=== PATIENT | female | born 1970 | race Caucasian/White ===

== ENCOUNTER 2017-03-14 08:30 | Inpatient (IN) | payer MEDICARE, MEDICAID ==
[~2017-03-14] VITALS: Ht 152.4 cm; Wt 94.3 kg
--- NOTE | ~2017-03-14 | CO ---
Unit #: [id number] #: [id number] Patient: KURT HAMILTON [id number] [place], [place] [address] [id number] I MR#: [id number] NAME: KURT HAMILTON. ROOM: 229 Age: 47 Sex: F Admission Date: 03/14/2017 : 1970 Attending Physician: Dianne Taylor M.D. Primary Care Physician: Primary Care Physician No Consultation Date: 03/18/2017 CONSULTATION REPORT REASON FOR CONSULTATION Followup. DISCUSSION Ms. Kurt Hamilton is a 47-year-old female, seen in room 229, bed 1 on 03/18/2017 at [facility]. The patient diagnosed with bipolar mood disorder; anxiety disorder, not otherwise specified. Currently compliant with medication. Reports medication is helping her. Denied any suicidal or homicidal ideation. Denied any psychotic symptom. The patient's vital signs; temperature 98.2, heart rate 100, respiratory rate 16, blood pressure 148/77, and oxygen saturation 100%. REVIEW OF SYSTEMS Complete review of system is unremarkable. MENTAL STATUS EXAMINATION General appearance; the patient dressed casually, lying comfortably in bed. Attention span and concentration, fair. Speech, regular rate and coherent. Oriented in time, place, and person. Mood and affect; sad, dysphoric, labile. Thought process, coherent. Thought content, the patient denied any thoughts of harming self or others. Recent and remote memory, fair. Language, intact. Fund of knowledge, fair. Insight and judgment, fair to slightly impaired. DIAGNOSES Psychiatric: Bipolar mood disorder, recurrent, severe, depressed, F31.9; anxiety disorder, not otherwise specified, F40.01. ASSESSMENT/PLAN 1. Supportive psychotherapy and psychoeducation provided to the patient. 2. Educated about benefits and side effects of medication and course and prognosis of illness. 3. Advised to continue with current medication. If needed, consider further adjustment of medication. Please feel free to call if any questions, telephone #[phone]. Dictated by... Hudson Hampton M.D. YANET/sharona TD: 03/19/2017 23:12 JOB #: [id number] Unit #: [id number] #: [id number] Patient: KURT HAMILTON CONSULTATION REPORT Page 1 of 1 X Hudson Hampton MD CONSULTATION REPORT
--- NOTE | ~2017-03-14 | CO ---
Unit #: [id number] #: [id number] Patient: KURT DERAS [id number] [address] [address] [id number] I MR#: [id number] NAME: KURT DERAS ROOM: 229 Age: 47 Sex: F Admission Date: 03/14/2017 : 1970 Attending Physician: Dianne Taylor M.D. Primary Care Physician: Primary Care Physician No Consultation Date: 03/17/2017 CONSULTATION REPORT REASON FOR CONSULTATION Followup. DISCUSSION Ms. Kurt Deras is a 47-year-old white female, seen in room 229, bed 1 on 03/17/2017. The patient was transferred from 5th floor. The patient reports that she is feeling better, but still somewhat anxious, nervous, mood labile. Reported physically not feeling well. Diagnosed with bipolar mood disorder. The patient reports medication is helping her. The patient's magnesium was 1.8, glucose 198. The patient reports still having lot of anxiety. REVIEW OF SYSTEMS Complete review of system unremarkable. MENTAL STATUS EXAMINATION The patient's vital signs; temperature 98.2, heart rate 86, respiratory rate 18, blood pressure 147/79, and oxygen saturation 100%. General appearance; the patient dressed in hospital attire, seemed somewhat anxious and nervous. Attention span and concentration, fair. Speech, regular rate and coherent. Oriented in time, place, and person. Mood and affect, sad and dysphoric. Thought process, coherent. Thought content, the patient denied any thoughts of harming self or others. Recent and remote memory, poor. Language, intact. Fund of knowledge, fair. Insight and judgment, fair to slightly impaired. DIAGNOSES Psychiatric: Bipolar mood disorder, recurrent, severe, depressed, F31.9; anxiety disorder, not otherwise specified, F40.01. ASSESSMENT/PLAN 1. Supportive psychotherapy and psychoeducation provided to the patient. 2. Educated about benefits and side effects of medication and course and prognosis of illness. 3. Advised to continue with current medication and we will make further adjustment of medication if needed. Dictated by... Valerie Pandey/sharona TD: 03/18/2017 08:24 Unit #: [id number] #: [id number] Patient: SHELLEY DERASY Cristi JOB #: [id number] CONSULTATION REPORT Page 1 of 1 X Hudson Hampton MD CONSULTATION REPORT
--- NOTE | ~2017-03-14 | A ---
[facility] Nutrition Therapy DATE: 03/15/17 Patient: KURT HAMILTON Physician: TEMO Address: [address] [place] [address] Room/Bed: [address], Zip: [place] [id number] Admit Date: 03/14/17 Date of : [birth year] Height: 5 0 Weight: 207 94 NUTRITIONAL ASSESSMENT: REASON: Diagnosis (DKA) + pending consult Admitting dx: 47 y/o female admitted with 5-day N/V/D + abdominal pain, found to be in DKA PMH: T1DM (dx ~1.5 yrs ago), anxiety, depression, helder Anthropometrics: Ht: 60", Wt: 86-94 kg since admission, BMI: 39 (stage II obese; based on admission weight) Labs: glucose 119, POC 122-192, A1C 13.9, Na 133, K+ 3.2, Phos 1.5, ALT 45 Meds: PPI, insulin drip, zofran prn I/O & Bowel function: Last BM 03/15 Skin Integrity: No significant issues, no edema Assessment: Chart reviewed, events noted. Patient admitted with BG > 1500 mg/dL, pt reports not taking insulin for the past month, found to be in DKA and was started on an insulin drip and made NPO. BG now better controlled, see A1C lab as stated above. She is inappropriate for interivew or diet education at this time. Scored 0 points on the malnutrition risk screen. Nursing is about to order the patient a consistent carb diet and order nutrition consult while RD on ICU floor. RD attempted to educate the patient but she stated she has not eaten yet, has blurry vision and isn't understanding much at this time and did not wish to verbally review the handouts left at bedside, which included: 1800 calorie/day 5-day sample meal plan, DM label reading tips, weight loss tips. RD left dietitian office number at top of handout and encouraged the patient to review the materials once able and to call with any questions. Will f/u to verbally review with her. See RD recs below, will follow hospital course. Dx: 1) Inadequate energy intake r/t diet not yet advanced AEB NPO status. 2) Altered nutrition related lab values r/t insulin non-compliance AEB BG > 1500 mg/dL on admission, A1C 13.9, DKA. 3) Stage II obese r/t diet, lifestyle, PMH AEB BMI 39. Intervention: Oral diet as tolerated, diet education once appropriate, insulin regimen Monitoring, Evaluation and Goals: 1. Tolerance of oral diet advancement with no c/o N/V/D. [facility] Nutrition Therapy DATE: 03/15/17 Patient: KURT HAMILTON Physician: TEMO Address: [address] [place] [address] Room/Bed: [address], Zip: [place] [address] Admit Date: 03/14/17 Date of : [birth year] Height: 5 0 Weight: 207 94 2. Improvement in labs (lytes, glucose, A1C). 3. Promote a gradual weight loss towards a healthy BMI range. Monitor: per protocol, criteria to determine if above goals met Recommendations: 1. Once insulin drip is discontinued advance oral diet to 60g carb/meal as tolerated. 2. Optimize insulin regimen to promote adequate blood glucose control. 3. Replace lytes prn (K+, Phos low). 4. Encourage medication compliance. RD will follow-up to further verbally review the diet education handouts that were provided to the patient. She was also given our contact info. Mild-moderate nutrition risk Respectfully, Elisabeth Ge, RD, LD Food and Nutritional Services [facility] cc: client file
--- NOTE | ~2017-03-14 | CO ---
Unit #: [id number] #: [id number] Patient: KURT HAMILTON [id number] [address] [address] [id number] I MR#: [id number] NAME: KURT HAMILTON ROOM: 229 Age: 47 Sex: F Admission Date: 03/14/2017 : 1970 Attending Physician: Dianne Taylor M.D. Consultation Date: 03/16/2017 CONSULTATION REPORT REASON FOR CONSULTATION Followup. DISCUSSION Ms. Kurt Hamilton is a 47-year-old white female, seen in room 570, bed 1, on 03/16/2017 at [facility]. The patient reports medication is helping her, still having problem with the anxiety, but denied any thoughts of harming self or others or any psychotic symptom. VITAL SIGNS Temperature 98.1, heart rate 96, respiratory rate 16, blood pressure 137/78, and oxygen saturation 98%. REVIEW OF SYSTEMS Complete review of systems unremarkable except as mentioned above. MENTAL STATUS EXAMINATION General appearance, the patient dressed casually and lying comfortably in a propped up position. The patient reports feeling very hot. Attention span and concentration, fair. Speech, regular rate. Oriented in time, place, and person. Mood and affect; sad, dysphoric, and anxious. Thought process, coherent. Thought content, the patient denied any thoughts of harming self or others or any hallucination. Recent and remote memory, fair. Language, intact. Fund of knowledge, fair. Insight and judgment, fair to slightly impaired. DIAGNOSES Psychiatric: Bipolar mood disorder, recurrent, severe depressed, F31.9 and anxiety disorder, not otherwise specified, F40.01. ASSESSMENT AND PLAN 1. Supportive psychotherapy and psychoeducation provided to the patient. 2. Educated about benefits and side effects of medication and course and prognosis of illness. 3. Advised to discontinue Seroquel as the patient was started on Phenergan due to interaction. The patient to continue with the other medication. If needed, consider further adjustment of medication. We will continue to follow. Please feel free to call if any questions, telephone #[phone]. Dictated by... Hudson Hampton M.D. Unit #: [id number] #: [id number] Patient: KURT HAMILTON/sharona TD: 03/16/2017 16:47 JOB #: [id number] CONSULTATION REPORT Page 1 of 1 X Hudson Hampton MD CONSULTATION REPORT
--- NOTE | ~2017-03-14 | OR ---
Unit #: [id number] #: [id number] Patient: KURT HAMILTON [id number] [address] [place], [place] [address] [id number] I MR#: [id number] NAME: KURT HAMILTON ROOM: 229 Date of Procedure: 03/17/2017 Admission Date: 03/14/2017 Surgeon: Andre Mason M.D. : 1970 Attending Physician: Dianne Taylor M.D. OPERATIVE REPORT PREOPERATIVE DIAGNOSES Nausea, vomiting, and upper abdominal pain. The patient having diabetic ketoacidosis on a background of uncontrolled type 1 diabetes. PROCEDURE PERFORMED Upper gastrointestinal endoscopy up to third part of duodenum. POSTOPERATIVE DIAGNOSIS Completely normal examination up to third part of duodenum. No mucosal abnormalities whatsoever present. RECOMMENDATIONS Supportive and symptomatic treatment is in order. We will continue the patient on metoclopramide and Protonix for now. Also, suggest advanced diet to 600 calorie CCD diet. SEDATION USED MAC. DESCRIPTION OF PROCEDURE Following detailed explanation of potential risks and complications of an upper endoscopy, namely perforation, bleeding, and complications related to sedation, the patient was brought to GI lab and laid in the left lateral decubitus position. Lubricated tip of the Olympus video upper endoscope was passed through the bite block into the proximal esophagus under direct vision. The entire esophageal mucosa was examined and appeared normal. Z-line was nicely demarcated, there being no esophagitis or hiatus hernia. The scope was then advanced into the gastric cavity and the latter was insufflated. Mucosa of the fundus, body, and antrum was examined and appeared unremarkable. Pylorus was intubated with visualization of the normal duodenal bulb and second and third part of the duodenum. Upon withdrawal and retroflexion; incisura, cardia, and greater curve was examined and no additional findings were noted. The scope was then withdrawn in the distal esophagus. The entire esophageal mucosa was examined all the way up to pharynx. No additional findings were noted. The patient tolerated the procedure without any postprocedure complications. Dictated by... Andre Mason M.D. Unit #: [id number] #: [id number] Patient: KURT HAMILTON ANA/sharona TD: 03/17/2017 15:34 JOB #: [id number] OPERATIVE REPORT Page 1 of 1 X Andre Mason MD PROCEDURE OPERATIVE NOTE
--- NOTE | ~2017-03-14 | CO ---
Unit #: [id number] #: [id number] Patient: KURT HAMILTON [id number] [address] [place], [place] [address] [id number] I MR#: [id number] NAME: KURT HAMILTON. ROOM: 570 Age: 47 Sex: F Admission Date: 03/14/2017 : 1970 Attending Physician: Dianne Taylor M.D. Consultation Date: 03/14/2017 CONSULTATION REPORT HISTORY OF PRESENT ILLNESS Patient is a 47-year-old lady with a past medical history of diabetes, anxiety, and depression, as well as kidney stones and bipolar, who presented to [facility] for evaluation of worsening shortness of breath and fatigue for approximately two weeks. Patient says she has had very poor p.o. intake. She has had extreme fatigue, nausea, and vomiting for approximately two weeks. She is also having abdominal pain. Patient is having emesis which is nonbloody. Patient has also had loose stools for approximately one week. Patient denies any sort of exacerbating or alleviating factors. Patient is on home insulin. She does not take anything for her neuropathic pain other than Unisom vxoq-kts-faykxgp pill medication. Patient has increased urinary frequency and has had approximately 100 pound weight loss over the past year. Glucose was 1539 at [facility] ER and pH was 7.29. She was give two liters of normal saline and transferred to the ICU for closer observation of diabetes. REVIEW OF SYSTEMS Significant for fevers, chills, diarrhea, and lower extremity swelling. Denies vision changes, denies headaches, and denies stiffness of the neck. In fact, her review of systems is negative otherwise in all 12 points except as previously stated in the History of Present Illness. PAST MEDICAL HISTORY 1. Diabetes. 2. Anxiety. 3. Depression. 4. Kidney stones. PAST SURGICAL HISTORY 1. Kidney stone removal, status post stent. 2. section. 3. Cholecystectomy. 4. Tubal ligation. SOCIAL HISTORY Patient lives with her sister. She has an 8-year-old son who lives with her. Former smoker, occasional marijuana use, and denies alcohol use. FAMILY HISTORY Mother with coronary artery disease. ALLERGIES Aspirin. Unit #: [id number] #: [id number] Patient: KURT HAMILTON HOME MEDICATIONS 1. Depakote. 2. Insulin. 3. Phenergan p.o. Home medications are being reviewed and reverified. PHYSICAL EXAMINATION VITAL SIGNS: T-current 98.8, pulse 123, respiratory rate 15, and blood pressure 150/104. Ins and outs not recorded yet. HEENT: Extraocular muscles intact. NECK: No accessory muscle use. CHEST: Decreased breath sounds bilaterally. CARDIOVASCULAR: Regular rate. No gallop. ABDOMEN: Soft, nontender, and nondistended. EXTREMITIES: No evidence of edema. No lesions on the bottom of the feet. DIAGNOSTIC STUDIES LABORATORY: CMP shows sodium of 120, BUN and creatinine 9 and 1.4, respectively, CO2 of 12, AST and ALT slightly elevated at 62 and 71. Blood gas 7.29/28/107. ASSESSMENT AND PLAN Patient has diabetic ketoacidosis, is having difficulty controlling her medications, and is having difficulty with hyperglycemic episode which seems to have been untreatable as an outpatient. Patient now presents with diabetic ketoacidosis, acute renal insufficiency, and history of bipolar. The plan is to restart patient's home Seroquel and try to treat the dehydration. Patient is having chronic pain. I am concerned she may be overusing Tylenol. Therefore, we will keep a close eye on her and encourage oral intake. Dictated by... Valerie Sy/brendon TD: 03/16/2017 15:22 JOB #: [id number] CONSULTATION REPORT Page 1 of 1 X Dhruv Ma MD CONSULTATION REPORT
--- NOTE | ~2017-03-14 | CR72 ---
[facility] A Service of [facility] RADIOLOGY TEXT RESULTS PATIENT: KURT HAMILTON LOCATION: [place] [address]- : [birth year] UNIT #: [id number] AGE: [address]: Kaye Bass MD SEX: F ORDER DR: [id number] [facility] [address] [place], [place] [address] [id number] I MR#: [id number] Acc #: [id number] NAME: KURT HAMILTON. : 1970 SEX: F STUDY DATE/TIME: 03/14/2017 14:34 UNIT: [facility] ROOM: [facility] STUDY DESCRIPTION: CR Chest Single View Portable Attending Physician: Kaye Bass M.D. Ordering Physician: Ed Doctor [id number] [facility] Primary Care Physician: No Primary Care Physician MEDICAL IMAGING REPORT This report is preliminary unless electronic signature is present EXAM Portable chest, 03/14/17 HISTORY Leukocytosis and congestion starting today. FINDINGS A portable view of the chest was obtained. The heart size and vascularity are normal. The lungs are clear and the bones are unremarkable. IMPRESSION No active disease. Dictated by... Giovanny Salmeron M.D. THIS IS AN ELECTRONICALLY VERIFIED REPORT Giovanny Salmeron M.D. at 03/15/2017 6:07 AM HERNAN/emily TD: 03/14/2017 20:42 JOB #: [id number] MEDICAL IMAGING REPORT Page 1 of 1 COPY
--- NOTE | ~2017-03-14 | FU ---
[facility] Nutrition Therapy DATE: 03/17/17 Patient: KURT HAMILTON Physician: TEMO Address: [address] [place] [address] Room/Bed: [address] [place] [address], Zip: [place] [address] Admit Date: 03/14/17 Date of : [birth year] Height: 5 0 Weight: 207 94.3 NUTRITION MONITORING/FOLLOW-UP: Reason: DIET EDUCATION FOLLOW-UP RD ATTEMPTED TO PROVIDE VERBAL CC DIET EDUCATION (WRITTEN DIET EDUCATION LEFT AT BEDSIDE FROM RD ON 03/15). PT REPORTS FEELING SLEEPY, NOTES BLURRY VISION AND NOT INTERESTED IN REVIEWING DIET EDUCATION AT THIS TIME. RD TO REMAIN AVAILABLE. RD WILL F/U PER PROTOCOL Respectfully, KEENAN SILVERMAN MS, RD, LD Food and Nutritional Services [facility] cc: client file
--- NOTE | ~2017-03-14 | CO ---
Unit #: [id number] #: [id number] Patient: KURT DERAS [id number] [place], [place] [address] [id number] I MR#: [id number] NAME: KURT DERAS ROOM: 229 Age: 47 Sex: F Admission Date: 03/14/2017 : 1970 Attending Physician: Dianne Taylor M.D. Primary Care Physician: No Primary Care Physician Consultation Date: 03/17/2017 CONSULTATION REPORT REASON FOR CONSULTATION Nausea, vomiting, diarrhea and upper abdominal pain. The patient was having type 1 diabetes, uncontrolled diabetes and diabetic ketoacidosis. HISTORY Ms. Deras is a 47-year-old white female. Unfortunately the patient has had very poor controlled diabetes, unable to get any insulin and she apparently ran out of insulin and came to the emergency room with diabetic ketoacidosis blood sugar more than 1500 and metabolic acidosis with a CO2 of 12. Since then she has normalized her acidosis and a blood glucose is now 246. She is still having a lot of nausea and vomiting and is unable to retain any food. She also mentions upper abdominal discomfort and pain. There was a history of diarrhea to start with and this has since resolved. Apparently she has no primary care physician and therefore, does not have any access to getting insulin. Upon admission, her anion gap was 24. PAST MEDICAL HISTORY Significant for history of type 1 diabetes. She also gives a history of peripheral neuropathy based upon her story. There is also a history of anxiety and depression. PAST SURGICAL HISTORY Previous surgeries include a cholecystectomy, tubal ligation, history of renal stones, surgery for renal stones and . MEDICATIONS AT HOME Insulin, Depakote and Phenergan. She ran out of insulin. ALLERGIES Aspirin. SOCIAL HISTORY The patient lives with her sister. She has an 8-year-old son who is living with her grandparents. She is an ex-smoker. Uses marijuana occasionally and denies any alcohol use. FAMILY HISTORY Significant for mother having had coronary artery disease and father apparently committed suicide. DETAILED REVIEW OF SYSTEMS A detailed review of organ system reveals significant weight loss. Patient says she has lot a substantial amount of weight. There is no Unit #: [id number] #: [id number] Patient: ALFONSO,KURT M history of fever, chills or rigors. No history of headaches, seizures, chest pain or syncope. No history of cough or expectoration or hemoptysis. No history of dysuria, hematuria or pyuria. No history of focal seizure or extremity weakness. PHYSICAL EXAMINATION GENERAL: She is alert and oriented, appears comfortable. VITAL SIGNS: Stable. Temperature 98.6, pulse 96, respiratory 18, blood pressure is 123/66. She weighs 207 pounds. Her baseline weight has been 200 pounds, in fact there is no weight loss based on these values. HEENT: She has no pallor, icterus, lymphadenopathy or peripheral edema. CARDIOVASCULAR: Normal heart sounds. No murmurs of auscultation. LUNGS: Normal breath sounds. Good air entry. ABDOMEN: Soft and obese, nontender. Liver and spleen are not palpable, and bowel sounds normal. DIAGNOSTIC STUDIES LABORATORY: Lab evaluation shows a hemoglobin of 11.9, with normochromic and normocytic SI indices. White count is normal and platelet count is 92. Initial when patient came in white count was elevated. Her blood glucose dropped from 1539 to 246 and CO2 was 12 on admission and is now 22. Serum albumin is 2.9. LFTs are otherwise normal. CLINICAL IMPRESSION Patient with uncontrolled diabetes, diabetic ketoacidosis. The vomiting may be related to underlying uncontrolled diabetes and ketoacidosis, may also be related to underlying gastroparesis as patient does seem to have peripheral neuropathy from diabetes. Management plan suggests consider a diagnostic upper endoscopy and if that is normal then advance the diet as tolerated. I think most of the problem seems to be compliance, inability to access insulin and associated metabolic complications. Thank you very much for asking me to see this pleasant patient. Dictated by... Valerie Huynh/loyda TD: 03/18/2017 08:32 JOB #: [id number] CONSULTATION REPORT Page 1 of 1 X Andre Mason MD CONSULTATION REPORT
--- NOTE | ~2017-03-14 | DS ---
Unit #: [id number] #: [id number] Patient: KURT HAMILTON [id number] [facility]. [place], [place] [address] [id number] I MR#: [id number] NAME: KURT HAMILTON. ROOM: 229 Age: 47 Sex: F Admission Date: 03/14/2017 : 1970 Discharge Date: 03/18/2017 Attending Physician: Dianne Taylor M.D. Primary Care Physician: No Primary Care Physician DISCHARGE SUMMARY REASON FOR ADMISSION Nausea, vomiting. HISTORY OF PRESENT ILLNESS The patient is a 47-year-old female with underlying history of diabetes, anxiety and depression, who ran out of her insulin several months ago secondary to longstanding history of noncompliance. Patient initially evaluated at outside facility, noted, at [facility], to be in acute DKA. The patient was transferred to [facility] for further management. While here, she was placed in the ICU. Consultation was placed to the skin care consultant. She underwent routine laboratory studies as well as just placed on DKA protocol. Her initial urine tox screen was positive for marijuana. She was gradually weaned off the DKA protocol, transitioned to Levemir as well as NovoLog medium dose sliding scale. Her insulins did show an improvement. Her anion gap subsequently closed. She initially was able to tolerate diet but began complaining of increased abdominal pain and/or discomfort. Therefore, she underwent a CT abdomen and pelvis which essentially showed no acute process. There was a left adnexal cyst which was noted approximately 3.8 cm and outpatient recommendation for followup pelvic ultrasound was recommended. The patient was unable to tolerate diet secondary to background nausea and vomiting. Consultation was placed to Dr. Mason of [facility]. Ultimately, the patient underwent upper GI endoscopy which was completely normal to the third part of the duodenum. A regular diet was subsequently reintroduced. Patient tolerated well without difficulty. At this point in time, the patient is clinically stable for discharge. She has a longstanding history of insulin-dependent diabetes to which she is noncompliant. She states that she is unable to get her medications for the past several months secondary to cost issues. However, she has received insulin at no cost on several occasions while here. She has appropriate insurance and has been verified by [facility] here. We have, in fact, adjusted her insulin to the lowest possible cost including Novolin N as well as Novolin R. She will be transitioned back home with [facility]. An appointment Unit #: [id number] #: [id number] Patient: KURT HAMILTON has already been made for her next week on March 25, 2017. From here, moving forward, ultimately her long-term prognosis is dependent on her ability and prognosis is dependent on her ability to obtain her medications, take her medications and follow directions as per medical advice. She was counseled extensively. FINAL DISCHARGE DIAGNOSES 1. Intractable nausea, vomiting, now resolved. 2. Diabetic ketoacidosis, now resolved. 3. Diabetes with insulin dependence. 4. Prior history of bipolar. 5. Substance abuse with marijuana. 6. Diabetes insulin dependent with poor control. Hemoglobin A1C 13.9%. 7. Severe morbid obesity. 8. Left adnexal cyst. Outpatient followup recommended. 9. Anxiety. 10. Depression. 11. Vaginal candidiasis. FINAL DISCHARGE MEDICATIONS 1. Protonix 40 mg p.o. daily. 2. Reglan 10 mg p.o. q.a.c. and q.h.s. 3. Novolin R 5 units t.i.d. with meals. 4. Novolin N 10 units subcu b.i.d. 5. Prazosin 5 mg p.o. q.h.s. 6. Diflucan 150 mg p.o. times one on March 19, 2017. 7. Doxepin 50 mg p.o. q.h.s. 8. Celexa 10 mg p.o. q.a.m. 9. Depakote ER 500 mg p.o. q.h.s. 10. Tylenol 650 mg p.o. q.6 p.r.n. DISCHARGE CONDITION Stable. DISCHARGE DISPOSITION Home. LONG-TERM PROGNOSIS Guarded secondary to longstanding history of noncompliance. Dictated by... Valerie Myles/deneen TD: 03/21/2017 09:13 JOB #: [id number] Unit #: [id number] #: [id number] Patient: KURT HAMILTON DISCHARGE SUMMARY Page 1 of 1 X Dianne Taylor MD DISCHARGE SUMMARY
--- NOTE | ~2017-03-14 | CT2 ---
[facility] A Service [facility] RADIOLOGY TEXT RESULTS PATIENT: KURT HAMILTON LOCATION: [facility] 229-01 : 72 UNIT #: [id number] AGE: [address]: Dianne Taylor MD SEX: F ORDER DR: [id number] [facility] [address] [facility]. [place], [place] [address] [id number] I MR#: [id number] Acc #: [id number] NAME: KURT HAMILTON. : 1970 SEX: F STUDY DATE/TIME: 03/16/2017 21:03 UNIT: [facility] ROOM: 229 STUDY DESCRIPTION: CT Abd and Pelv W Cont Attending Physician: Dianne Taylor M.D. Ordering Physician: Dianne Taylor M.D. Primary Care Physician: Primary Care Physician No MEDICAL IMAGING REPORT This report is preliminary unless electronic signature is present EXAM CT abdomen and pelvis with contrast DATE 03/16/2017 HISTORY 47-year-old female with left upper quadrant abdominal pain for 2-3 months intermittently. Nausea, vomiting and diarrhea and occasional bloody stool. COMPARISON CT abdomen and pelvis without contrast 12/04/2011. PROCEDURE 5 mm axial images from the lung bases through the lesser trochanters after intravenous and enteric contrast administration. Sagittal and coronal reformatted images were obtained. This CT exam was performed with one or more of the following radiation dose reduction techniques: Automatic exposure control, adjustment of mA and/or kV according to patient size, and iterative reconstruction. FINDINGS ABDOMEN FINDINGS: The appendix is normal. Gallbladder is surgically absent. The liver is borderline steatotic. The pancreas and adrenal glands are normal. There is cortical scarring in the left kidney, particularly in the lower pole. There are two nonobstructing stones in the right kidney, measuring 5 mm and 1.3 cm. No ureteral stone or hydronephrosis or perinephric inflammation is seen. Periampullary duodenal diverticulum measures about 2.5 cm. PELVIS FINDINGS: Left ovarian cyst or cystic lesion measures about 3.8 [facility] A Service [facility] RADIOLOGY TEXT RESULTS PATIENT: KURT HAMILTON LOCATION: [facility] 229- : 72 UNIT #: [id number] AGE: [address]: Dianne Taylor MD SEX: F ORDER DR: john. Uterus, urinary bladder and rectum are normal. No pelvic adenopathy or free fluid is identified. No acute osseous abnormalities are identified. IMPRESSION 1. 3.8 cm cystic lesion within the left adnexa. Consider correlation with pelvic ultrasound. 2. Normal appendix. 3. Nonobstructing right renal stones, largest measuring 1.3 cm. 4. Borderline hepatic steatosis. 5. Cholecystectomy. Dictated by... Margarita Baugh M.D. THIS IS AN ELECTRONICALLY VERIFIED REPORT Margarita Baugh M.D. at 03/18/2017 8:31 AM MANAS/johnnie TD: 03/18/2017 00:12 JOB #: [id number] MEDICAL IMAGING REPORT Page 1 of 1 COPY
--- NOTE | ~2017-03-14 | EKG ---
PATIENT: KURT HAMILTON UNIT #: [id number] Ventricular Rate: 112 BPM Atrial Rate: 112 BPM P-R Interval: 132 ms QRS Duration: 86 ms Q-T Interval: 378 ms QTC Calculation(Bezet): 515 ms P [place]: 60 degrees Calculated R [place]: -5 degrees Calculated T [place]: 15 degrees Diagnosis Line: Sinus tachycardia Diagnosis Line: Possible Left atrial enlargement Diagnosis Line: Possible Inferior infarct , age undetermined Diagnosis Line: Abnormal ECG Diagnosis Line: When compared with ECG of 22-MAY-2010 10:55, Diagnosis Line: Vent. rate has increased BY 47 BPM Diagnosis Line: Confirmed by DALILA WALLS MD ([id number]) on 03/15/2017 Diagnosis Line: 8:38:14 AM INTERPRETING MD: KAVITA LOPEZ
--- NOTE | ~2017-03-14 | CR72 ---
[facility] A Service of [facility] & [facility] RADIOLOGY TEXT RESULTS PATIENT: KURT HAMILTON LOCATION: [facility] 570-01 : 74 UNIT #: [id number] AGE: [address]: Dianne Taylor MD SEX: F ORDER DR: [id number] [facility] [address] [facility]. [place], [place] [address] [id number] I MR#: [id number] Acc #: [id number] NAME: KURT HAMILTON. : 1970 SEX: F STUDY DATE/TIME: 03/15/2017 4:33 UNIT: [facility] ROOM: [facility] STUDY DESCRIPTION: CR Chest Single View Portable Attending Physician: Dianne Taylor M.D. Ordering Physician: Abdirahman Ma M.D. Primary Care Physician: Primary Care Physician No MEDICAL IMAGING REPORT This report is preliminary unless electronic signature is present EXAM AP portable chest 03/15/2017 HISTORY Cough, congestion and nausea for about 2 days. Follow up inpatient cardiopulmonary status. TECHNIQUE AP portable chest x-ray. FINDINGS The exam shows no significant change since yesterday. Heart size and pulmonary vascularity are normal. Lungs appear clear. No airspace consolidation or pleural effusion. IMPRESSION No active disease. No change since yesterday. Dictated by... Michael Lao M.D. THIS IS AN ELECTRONICALLY VERIFIED REPORT Michael Lao M.D. at 03/15/2017 9:59 PM LORENZA/phillip TD: 03/15/2017 07:47 JOB #: [id number] MEDICAL IMAGING REPORT Page 1 of 1 COPY
--- NOTE | ~2017-03-14 | HP ---
Unit #: [id number] #: [id number] Patient: KURT HAMILTON [id number] [facility]. [place], [place] [address] [id number] I MR#: [id number] NAME: KURT HAMILTON. ROOM: [facility] Age: 47 Sex: F Admission Date: 03/14/2017 : 1970 Attending Physician: Kaye Bass M.D. Primary Care Physician: No Primary Care Physician HISTORY AND PHYSICAL CHIEF COMPLAINT Nausea, vomiting, need insulin. HISTORY OF PRESENT ILLNESS The patient is a 47-year-old female with a past medical history of diabetes, anxiety and depression, who presented to [facility] for evaluation of the above. The patient states that she has been out of insulin for the past month. She has had a 5-day history of not feeling well. She reports nausea, vomiting and abdominal pain. She reports more than 10 bouts of emesis within the past 24 hours. She has also had diarrhea. She states that she has had abdominal pain that is "everywhere." There are no reports of exacerbating or alleviating factors. She denies any fever. She has had an occasionally productive cough. She also reports urinary frequency. She states that she has lost about 100 pounds over the past year. In the emergency department at [facility], initial pulse and blood pressure were 126 and 198/119 respectively. Arterial blood gas notable for pH 7.29. Glucose on comprehensive metabolic panel 1,539. Anion gap is 24. She was given a total of 2 liters of normal saline, 10 units of regular insulin and 4 mg of Zofran in the emergency department. She was started on insulin drip and sent to [facility] for admission. PAST MEDICAL HISTORY 1. Diabetes. She states that she was diagnosed about a year and a half ago. 2. Anxiety/depression. PAST SURGICAL HISTORY 1. Surgery for kidney stones. 2. . 3. Cholecystectomy. 4. Tubal ligation. SOCIAL HISTORY The patient lives with her sister. She has an 8-year-old son who is currently living with a grandparent. She is a former smoker. She reports occasional marijuana use. She denies alcohol use. FAMILY HISTORY Notable for mother having coronary artery disease. Her father committed suicide. Unit #: [id number] #: [id number] Patient: KURT HAMILTON ALLERGIES Aspirin. HOME MEDICATIONS 1. Insulin. 2. Depakote. 3. Phenergan. Home medications will need to be reviewed and verified. REVIEW OF SYSTEMS A complete review of systems is negative except as indicated in the history of present illness. PHYSICAL EXAMINATION GENERAL: The patient is a female who is awake and alert, somewhat anxious. VITALS: Temperature 99.4, pulse 126, respiratory rate 28, blood pressure 198/119, most recently 165/74, oxygen saturation 98% on room air. HEENT: The head is atraumatic. Mucous membranes are dry. Dentition is poor. The tongue demonstrates white coating. NECK: Supple. Trachea midline. LUNGS: Clear to auscultation bilaterally with no increased work of breathing. HEART: Regular rate and rhythm. ABDOMEN: Soft and nontender with bowel sounds present in all four quadrants. EXTREMITIES: Nontender with no pedal edema. NEUROLOGIC: The patient is awake and alert. She is oriented to month and year. She is not sure of the exact date. She follows commands. She is moving all extremities. PSYCHIATRIC: The patient is somewhat anxious but cooperative. SKIN: Skin of examined areas is warm and dry. DIAGNOSTIC STUDIES LABORATORY: CMP notable for sodium 120 that corrects to 143 when glucose of 1,539 is accounted for. CO2 12, chloride 84, anion gap is 24. BUN and creatinine 9 and 1.4 respectively. AST and ALT are 62 and 71 respectively. Alkaline phosphatase 153, total protein 8.7, beta hydroxybutyrate is 0.37. Arterial blood gas shows pH 7.29, pCO2 28, pO2 107. Urinalysis normal. CBC notable for white blood cell count 10.9. MCV 100.3. ASSESSMENT The patient is a 47-year-old female with 1. Diabetic ketoacidosis. The patient has not taken insulin for the past month. The patient received 2 liters of normal saline as well as 10 units of regular insulin in the emergency department. She is currently on insulin drip. 2. Anion gap metabolic acidosis with an anion gap of 24. 3. Acute kidney injury. The patient's creatinine was 0.9 on 11/29/2011 and it is 1.4 today. 4. Transaminitis. 5. Leukocytosis without obvious source of infection. 6. Anxiety/depression. 7. Former smoker. 8. Oral candidiasis. Unit #: [id number] #: [id number] Patient: KURT HAMILTON PLAN 1. Admit to ICU. 2. Diabetic ketoacidosis protocol with insulin drip. 3. Check magnesium and phosphorus levels. 4. Blood cultures if not done times two. 5. Chest x-ray for further evaluation of leukocytosis. 6. EKG and cardiac enzymes. 7. Urine tox screen. 8. Neurologic checks. 9. Nystatin 5 ml p.o. q.[address] Ma regarding ICU admission. 11. Repeat labs in the morning. 12. SCDs for DVT prophylaxis. 13. Protonix for GI prophylaxis since the patient will be in the ICU. CODE STATUS The patient is a full code. Thirty minutes critical care time spent in the care of this patient (1:28 to 1:58 p.m. Dictated by Kaye Bass M.D. SHANIA/clarissa TD: 03/14/2017 14:13 JOB #: [id number] HISTORY AND PHYSICAL Page 1 of 1 X Kaye Bass MD X HISTORY AND PHYSICAL
--- NOTE | ~2017-03-14 | CO ---
Unit #: [id number] #: [id number] Patient: KURT DERAS [id number] [facility] [address] [facility]. [place], [place] [address] [id number] MR#: [id number] NAME: KURT DERAS ROOM: 229 Age: 47 Sex: F Admission Date: 03/14/2017 : 1970 Attending Physician: Dianne Taylor M.D. Consultation Date: 03/15/2017 CONSULTATION REPORT REASON FOR CONSULTATION Bipolar disorder, anxiety, and poor sleep. HISTORY OF PRESENT ILLNESS Ms. Kurt Deras is a 47-year-old female, seen in room 570, bed 1, on 03/15/2017, at [facility]. The patient was recently transferred from ICU. The patient reports having trouble with depression, anxiety, mood lability, and racing thoughts. The patient reports that she used to be on Depakote and Lamictal at home, having trouble sleeping. Denied any suicidal or homicidal ideation. Denied any psychotic symptom. The patient was admitted with nausea and vomiting. The patient has a history of diabetes. Denied any use of any drugs or alcohol. PAST PSYCHIATRIC HISTORY Remarkable for history of depression, anxiety, bipolar disorder and has received outpatient services by outpatient psychiatrist. No history of any suicide attempt or any inpatient psychiatric treatment. MEDICAL HISTORY History of diabetes mellitus, insulin dependent. MEDICATION HISTORY The patient is on insulin, Depakote, and Phenergan. ALLERGIES Aspirin. FAMILY HISTORY AND SOCIAL HISTORY The patient reports that she has a good support system. No history of any substance abuse. REVIEW OF SYSTEMS Complete review of systems is unremarkable. MENTAL STATUS EXAMINATION Vital signs, please see above. General appearance; the patient dressed casually, lying comfortably in bed, able to answer questions appropriately. Attention span and concentration, fair. Speech, regular rate and coherent. Oriented in time, place, and person. Mood and affect, sad and dysphoric. Thought process, coherent. Thought content, the patient denied any thoughts of harming self or others or any hallucination. Recent and remote memory, fair. Language, intact. Fund of knowledge, fair. Insight and judgment, fair to slightly impaired. Unit #: [id number] #: [id number] Patient: KURT DERAS DIAGNOSES Psychiatric: Bipolar mood disorder, recurrent, severe, depressed, F31.9. Secondary diagnosis: Deferred. Medical diagnosis: Please refer to H and P. Stressors: Psychosocial stressor. ASSESSMENT AND PLAN 1. Supportive psychotherapy and psychoeducation provided to the patient. 2. Educated about benefits and side effects of medication and course and prognosis of illness. 3. Advised to resume the patient's medication; Vistaril 25 mg t.i.d. for anxiety, doxepin 50 mg at bedtime for sleep, Depakote ER 500 mg at bedtime for mood stabilization. The patient is on Seroquel. Plan to consider taking her off from this medication and also from Celexa. Please feel free to call if any questions, telephone #[phone]. Dictated by... Valerie Pandey/sharona TD: 03/16/2017 18:36 JOB #: [id number] CONSULTATION REPORT Page 1 of 1 X Hudson Hampton MD X CONSULTATION REPORT
[~2017-03-14 08:30] MED LIST: AMOXICILLIN PO; AMOXICILLIN500 M1 PO; AMPICILLIN PO; BACTRIM DS TABL1 TA1 PO; CIPRO PO; CITALOPRAM HBR40 MG PO; DEPAKOTE PO; KEFLEX PO; KLONOPIN PO; LAMICTAL PO; LAMICTAL100 MG PO; LORTAB 7.5-5001 TAB PO; MEDROL PO; METHADONE PO; PEN-VEE K PO; PHENERGAN PO; PHENERGAN25 MG PO; SEROQUEL PO; VICODIN 5/500 T1 TAB PO; ZOFRAN PO
[2017-03-14 09:12] LABS: BASOPHIL% 0.4 % (0-2.5); HEMATOCRIT 50.6 % (35.0-45.0); LYMPHOCYTE# 1.2 X10e3 (1.0-3.5); LYMPHOCYTE% 11.4 % (17.0-45.0); MEAN CELL VOLUME 100.3 FL (83-96); MEAN CORPUSCULAR HEMOGLOBIN 29.7 PG (28-34); MEAN CORPUSCULAR HGB CONC 29.6 g/dL (30-36); MEAN PLATELET VOLUME 10.3 FL (6.5-11.5); MONOCYTE# 0.4 X10e3 (0-1.0); MONOCYTE% 3.4 % (3.0-12.0); NEUTROPHIL# 9.3 X10e3 (1.5-7.1); NEUTROPHIL% 84.8 % (40-75); PLATELET COUNT 183 X10e3 (140-420); RED BLOOD COUNT 5.05 X10e (3.90-5.30); RED CELL DISTRIBUTION WIDTH 14.5 % (11.0-15.5); WHITE BLOOD COUNT 10.9 X10e3 (4.0-10.5)
[2017-03-14 09:20] LABS: DIFF IND NO
[2017-03-14 09:22] LABS: URINE APPEARANCE CLEAR; URINE BILIRUBIN NEG (NEG); URINE BLOOD NEG (NEG); URINE COLOR YELLOW; URINE GLUCOSE 300 MG/DL (NORM); URINE KETONE NEG (NEG); URINE LEUKOCYTE ESTERASE NEG (NEG); URINE NITRATE NEG (NEG); URINE PROTEIN NEG (NEG); URINE SOURCE CLEAN CATCH; URINE SPECIFIC GRAVITY <=1.005 (1.003-1.035); URINE UROBILINOGEN 0.2 MG/DL (NORM)
[2017-03-14 09:26] LABS: MICRO INDICATED? NO
[2017-03-14 09:40] LABS: ALBUMIN SERUM 4.1 g/dL (3.5-5.0); BILIRUBIN, DIRECT 0.2 mg/dL (0.0-0.2); BILIRUBIN,INDIRECT 0.8 mg/dL (0.0-0.9); BUN/CREATININE RATIO 6.42; CALCIUM SERUM 9.2 mg/dL (8.4-10.2); CREATININE SERUM 1.4 mg/dL (0.6-1.4); GLOM FILT RATE Estimated 45.3 mL/min (>60); POTASSIUM 4.5 mmol/L (3.5-5.1); PROTEIN TOTAL SERUM 8.7 g/dL (6.0-8.3)
[2017-03-14 11:11] LABS: ARTERIAL BLD GAS O2 SATURATION 97.7 % (90.0-100.0); ARTERIAL BLOOD GAS CARBOXY HB 1.9 %sat (0.0-9.0); ARTERIAL BLOOD GAS HCO3 13.1 mmol/L
[2017-03-14 11:12] LABS: ARTERIAL BLOOD GAS MET HB -1.6 %sat (0.0-2.0); ARTERIAL DRAW? YES
[2017-03-14 11:13] LABS: ARTERIAL BLOOD GAS ART SITE RIGHT RADIAL
[2017-03-14 11:52] LABS: BETA HYDROXYBUTYRATE 0.37 MMOL/L (0.02-0.27)
[2017-03-14 15:09] LABS: MAGNESIUM 1.9 mg/dL (1.6-3.0); PHOSPHOROUS 1.1 mg/dL (2.5-4.6)
[2017-03-14 15:32] LABS: BUN/CREATININE RATIO 7.77; CALCIUM SERUM 9.5 mg/dL (8.4-10.2); CREATININE SERUM 0.9 mg/dL (0.6-1.4); GLOM FILT RATE Estimated 77.3 mL/min (>60); POTASSIUM 3.4 mmol/L (3.5-5.1)
[2017-03-14] MEDS ORDERED: CELEXA10 M1 PO (15:53)
[2017-03-14] MEDS ORDERED: PHENERGAN25 M1 PO (15:54)
[2017-03-14] MEDS ORDERED: SEROQUEL50 M1 PO (15:54)
[2017-03-14] MEDS ORDERED: PRAZOSIN HCL1 GM PO (15:54)
[2017-03-14 17:52] LABS: AMPHETAMINE NEG (NEG); BARBITURATES NEG (NEG); BENZODIAZEPINES NEG (NEG); COCAINE NEG (NEG); MARIJUANA POS (NEG); OPIATES NEG (NEG); TRICYCLIC ANTIDEPRESSANTS NEG (NEG); U METHADONE NEG (NEG)
[2017-03-14 18:40] LABS: BUN/CREATININE RATIO 8.57; CALCIUM SERUM 8.9 mg/dL (8.4-10.2); CREATININE SERUM 0.7 mg/dL (0.6-1.4); GLOM FILT RATE Estimated 104.6 mL/min (>60); POTASSIUM 4.1 mmol/L (3.5-5.1)
[2017-03-14 20:55] LABS: CK TOTAL 35 IU/L (26-140)
[2017-03-15 01:19] LABS: BUN/CREATININE RATIO 8.33; CALCIUM SERUM 7.8 mg/dL (8.4-10.2); CREATININE SERUM 0.6 mg/dL (0.6-1.4); GLOM FILT RATE Estimated 110.1 mL/min (>60)
[2017-03-15 06:34] LABS: ALBUMIN SERUM 3.1 g/dL (3.5-5.0); ALKALINE PHOSPHATASE 96 U/L (32-92); ALT (SGPT) 45 U/L (10-40); AST (SGOT) 38 U/L (10-42); BILIRUBIN,TOTAL 0.6 mg/dL (0.2-2.0); CALCIUM SERUM 7.6 mg/dL (8.4-10.2); CARBON DIOXIDE 22 mmol/L (22-31); CHLORIDE 105 mmol/L (100-111); CREATININE SERUM 0.6 mg/dL (0.6-1.4); GLOM FILT RATE Estimated 110.1 mL/min (>60); GLUCOSE FASTING 119 mg/dL (70-110); MAGNESIUM 1.9 mg/dL (1.6-3.0); PHOSPHOROUS 1.5 mg/dL (2.5-4.6); POTASSIUM 3.2 mmol/L (3.5-5.1); PROTEIN TOTAL SERUM 6.6 g/dL (6.0-8.3); SODIUM 133 mmol/L (135-145)
[2017-03-15 06:36] LABS: BLOOD UREA NITROGEN <5 mg/dL (9-23); BUN/CREATININE RATIO 8.33
[2017-03-15 13:37] LABS: BASOPHIL% 0.4 % (0-2.5); EOSINOPHIL# 0.1 X10e3 (0-0.7); EOSINOPHIL% 0.6 % (0.0-7.0); HEMATOCRIT 37.5 % (35.0-45.0); LYMPHOCYTE# 2.3 X10e3 (1.0-3.5); LYMPHOCYTE% 25.3 % (17.0-45.0); MEAN CORPUSCULAR HEMOGLOBIN 29.4 PG (28-34); MEAN CORPUSCULAR HGB CONC 33.8 g/dL (30-36); MEAN PLATELET VOLUME 8.9 FL (6.5-11.5); MONOCYTE# 0.5 X10e3 (0-1.0); MONOCYTE% 5.1 % (3.0-12.0); NEUTROPHIL# 6.3 X10e3 (1.5-7.1); NEUTROPHIL% 68.6 % (40-75); PLATELET COUNT 107 X10e3 (140-420); RED BLOOD COUNT 4.31 X10e (3.90-5.30); RED CELL DISTRIBUTION WIDTH 13.6 % (11.0-15.5); WHITE BLOOD COUNT 9.2 X10e3 (4.0-10.5)
[2017-03-15 13:43] LABS: HEMOGLOBIN 12.7 gm/dL (12.0-16.0); MEAN CELL VOLUME 87.1 FL (83-96)
[2017-03-15 13:46] LABS: DIFF IND NO
[2017-03-15 14:04] LABS: CALCIUM SERUM 7.6 mg/dL (8.4-10.2); CREATININE SERUM 0.6 mg/dL (0.6-1.4); GLOM FILT RATE Estimated 110.1 mL/min (>60); PHOSPHOROUS 1.2 mg/dL (2.5-4.6); POTASSIUM 4.4 mmol/L (3.5-5.1)
[2017-03-16 05:23] LABS: BASOPHIL% 0.2 % (0-2.5); EOSINOPHIL# 0.1 X10e3 (0-0.7); EOSINOPHIL% 0.9 % (0.0-7.0); HEMOGLOBIN 11.9 gm/dL (12.0-16.0); LYMPHOCYTE# 2.4 X10e3 (1.0-3.5); LYMPHOCYTE% 39.8 % (17.0-45.0); MEAN CELL VOLUME 87.2 FL (83-96); MEAN CORPUSCULAR HEMOGLOBIN 29.6 PG (28-34); MEAN CORPUSCULAR HGB CONC 33.9 g/dL (30-36); MONOCYTE# 0.3 X10e3 (0-1.0); MONOCYTE% 5.6 % (3.0-12.0); NEUTROPHIL# 3.2 X10e3 (1.5-7.1); NEUTROPHIL% 53.5 % (40-75); PLATELET COUNT 92 X10e3 (140-420); RED BLOOD COUNT 4.01 X10e (3.90-5.30); RED CELL DISTRIBUTION WIDTH 14.1 % (11.0-15.5)
[2017-03-16 06:11] LABS: ALBUMIN SERUM 2.9 g/dL (3.5-5.0); BILIRUBIN,TOTAL 0.5 mg/dL (0.2-2.0); BUN/CREATININE RATIO 13.33; CALCIUM SERUM 7.8 mg/dL (8.4-10.2); CREATININE SERUM 0.6 mg/dL (0.6-1.4); GLOM FILT RATE Estimated 110.1 mL/min (>60); PHOSPHOROUS 1.9 mg/dL (2.5-4.6); POTASSIUM 3.7 mmol/L (3.5-5.1); PROTEIN TOTAL SERUM 6.1 g/dL (6.0-8.3)
[2017-03-16 06:23] LABS: DIFF IND YES
[2017-03-16 06:26] LABS: PLATELET ESTIMATE DECREASED (NORMAL)
[2017-03-16 20:23] LABS: URINE SOURCE CLEAN CATCH
[2017-03-16 20:29] LABS: URINE APPEARANCE CLEAR; URINE BILIRUBIN NEG (NEG); URINE BLOOD NEG (NEG); URINE COLOR YELLOW; URINE GLUCOSE >1000 MG/DL (NEG); URINE KETONE TRACE (NEG); URINE LEUKOCYTE ESTERASE 2+ (NEG); URINE NITRATE POS (NEG); URINE PROTEIN NEG (NEG); URINE SPECIFIC GRAVITY 1.024 (1.003-1.035)
[2017-03-16 20:30] LABS: CULTURE INDICATED? YES; URBCS1 AUWI 0-2 /[HPF] (0-2); URINE BACTERIA AUWI 1+ (NEGATIVE); URINE SQUAMOUS EPITHELIAL CELL NONE SEEN /[HPF]; UWBCS1 AUWI 100-200 (0-5)
[2017-03-17 05:35] LABS: BASOPHIL% 0.5 % (0-2.5); EOSINOPHIL# 0.1 X10e3 (0-0.7); EOSINOPHIL% 1.6 % (0.0-7.0); HEMATOCRIT 35.9 % (35.0-45.0); HEMOGLOBIN 11.9 gm/dL (12.0-16.0); LYMPHOCYTE# 2.1 X10e3 (1.0-3.5); LYMPHOCYTE% 39.9 % (17.0-45.0); MEAN CELL VOLUME 88.7 FL (83-96); MEAN CORPUSCULAR HEMOGLOBIN 29.4 PG (28-34); MEAN CORPUSCULAR HGB CONC 33.1 g/dL (30-36); MEAN PLATELET VOLUME 9.1 FL (6.5-11.5); MONOCYTE# 0.3 X10e3 (0-1.0); MONOCYTE% 5.5 % (3.0-12.0); NEUTROPHIL# 2.8 X10e3 (1.5-7.1); NEUTROPHIL% 52.5 % (40-75); PLATELET COUNT 92 X10e3 (140-420); RED BLOOD COUNT 4.05 X10e (3.90-5.30); RED CELL DISTRIBUTION WIDTH 13.7 % (11.0-15.5); WHITE BLOOD COUNT 5.4 X10e3 (4.0-10.5)
[2017-03-17 05:49] LABS: DIFF IND NO
[2017-03-17 05:58] LABS: CALCIUM SERUM 8.4 mg/dL (8.4-10.2); CREATININE SERUM 0.5 mg/dL (0.6-1.4); GLOM FILT RATE Estimated 116.9 mL/min (>60); POTASSIUM 3.9 mmol/L (3.5-5.1)
[2017-03-18 05:43] LABS: HEMATOCRIT 34.3 % (35.0-45.0); HEMOGLOBIN 11.5 gm/dL (12.0-16.0); MEAN CELL VOLUME 88.1 FL (83-96); MEAN CORPUSCULAR HEMOGLOBIN 29.6 PG (28-34); MEAN CORPUSCULAR HGB CONC 33.6 g/dL (30-36); MEAN PLATELET VOLUME 9.2 FL (6.5-11.5); RED BLOOD COUNT 3.9 X10e (3.90-5.30); RED CELL DISTRIBUTION WIDTH 13.8 % (11.0-15.5); WHITE BLOOD COUNT 5.6 X10e3 (4.0-10.5)
[2017-03-18 06:03] LABS: CALCIUM SERUM 8.4 mg/dL (8.4-10.2); CREATININE SERUM 0.6 mg/dL (0.6-1.4); GLOM FILT RATE Estimated 110.1 mL/min (>60)
[2017-03-18] MEDS ORDERED: TYL325 PO (17:22)
[2017-03-18] MEDS ORDERED: DEPAKOTE ER250 MG PO (17:23)
[2017-03-18] MEDS ORDERED: DOXEPIN HCL50 MG PO (17:24)
[2017-03-18] MEDS ORDERED: DIFLUCAN100 MG PO (17:26)
[2017-03-18] MEDS ORDERED: REGLAN10 MG PO (17:34)
[2017-03-18] MEDS ORDERED: NOVOLIN N100 UNIT/1 SUBQ (17:35)
[2017-03-18] MEDS ORDERED: NOVOLIN R100 UNITS/ SUBQ (17:36)
[2017-03-18] MEDS ORDERED: PROTONIX PO (17:37)
== END 2017-03-18 19:02 | disposition home or self-care (01) | DRG 638 ==
LOC: SED 08:30 → CICCU3 13:17 → SED 13:17 → CEDOF 13:17 → CICCU3 13:27 → CEDOF 13:27 → CICCU3 13:55 → CEDOF 13:55 → CICCU3 03-15 07:46 → C5C 03-15 18:45 → C2A 03-16 17:16
PROVIDERS: Emergency Medicine; Family Medicine; Internal Medicine Gastroenterology; Internal Medicine Pulmonary Disease
PROC: 0DJ08ZZ Inspection of Upper Intestinal Tract, Via Natural or Artificial Opening Endoscopic (ICD-10-PCS; principal; 2017-03-17 15:03)
DX: E10.10 Type 1 diabetes mellitus with ketoacidosis without coma (principal); F31.4 Bipolar disorder, current episode depressed, severe, without psychotic features; N17.9 Acute kidney failure, unspecified; K31.84 Gastroparesis; E10.43 Type 1 diabetes mellitus with diabetic autonomic (poly)neuropathy; E66.01 Morbid (severe) obesity due to excess calories; B37.3 Candidiasis of vulva and vagina; N39.0 Urinary tract infection, site not specified; Z79.4 Long term (current) use of insulin; F41.9 Anxiety disorder, unspecified; N85.8 Other specified noninflammatory disorders of uterus; R11.2 Nausea with vomiting, unspecified; Z91.19 Patient's noncompliance with other medical treatment and regimen; E86.0 Dehydration; K21.9 Gastro-esophageal reflux disease without esophagitis; F12.10 Cannabis abuse, uncomplicated; Z68.37 Body mass index [BMI] 37.0-37.9, adult; Z90.49 Acquired absence of other specified parts of digestive tract; Z98.51 Tubal ligation status; Z87.891 Personal history of nicotine dependence; Z88.6 Allergy status to analgesic agent; Z81.8 Family history of other mental and behavioral disorders; Z82.49 Family history of ischemic heart disease and other diseases of the circulatory system; R74.0 Nonspecific elevation of levels of transaminase and lactic acid dehydrogenase [LDH]; Z87.442 Personal history of urinary calculi
CPT/HCPCS: 36415; 36600; 51702; 71010; 74177; 80048; 80053; 80076; 80178; 80307; 81003; 82010; 82150; 82550; 82803; 82947; 83036; 83690; 83735; 84100; 84484; 85025; 85027; 85610; 87040; 87086; 87088; 93005; 96361; 96374; 96375; 99291; C9113; J0696; J1630; J1815; J2405; J2765; J3475; Q9967